=== PATIENT | female | born 1935 | race Caucasian/White ===

== ENCOUNTER → 2016-09-01 | Outpatient (CLI) | payer MEDICARE, BC ==
[~2016-09-01] MED LIST: COREG 6.256.25 MG/TA PO; ENTOCORT EC3 MG PO; LAMICTAL 100MG100 MG PO; LIPITOR 10MG10 MG PO; NORVASC 10MG10 MG PO; PLAVIX 75MG TAB75 MG PO; SYNTHROID0.075 MG/T PO; ZESTORETIC 12.51 TAB PO
== END ==
LOC: COL.RAD 09:51
DX: K52.9 Noninfective gastroenteritis and colitis, unspecified (principal); I70.1 Atherosclerosis of renal artery; I70.208 Unspecified atherosclerosis of native arteries of extremities, other extremity
CPT/HCPCS: Q9967

== ENCOUNTER 2016-10-07 05:38 | Day surgery (SDC) | payer MEDICARE, BC ==
[2016-10-07] VITALS (22 sets, daily range): BP systolic 127–174; BP diastolic 58–85; PULSE 17–74; TEMP 97.7
[~2016-10-07] VITALS: Ht 157.6 cm; Wt 49.5 kg
[2016-10-07 06:32] LABS: HEMOGLOBIN 12.3 g/dl (12.5-16.0); MEAN CELL VOLUME 89 fl (80.0-100.0); MEAN CORPUSCULAR HEMOGLOBIN 31 pg (27.0-31.0); MEAN CORPUSCULAR HGB CONC 34 g/dl (33.0-37.0); MEAN PLATELET VOLUME 9.7 fl (7.4-10.4); PLATELET COUNT 229 K/mm3 (130-400); RED BLOOD COUNT 4.03 M/mm3 (4.10-5.30); REDCELL DISTRIBUTION WIDTH-CV 12.8 % (11.5-14.5); WHITE BLOOD COUNT 8.2 K/mm3 (4.8-10.8)
[2016-10-07 06:37] LABS: INR 0.9 (0.8-3.0); PROTHROMBIN TIME 10.2 SECONDS (9.7-12.8)
[2016-10-07] MEDS ORDERED: LAMICTAL 100MG100 MG PO (06:37)
[2016-10-07] MEDS ORDERED: NORVASC 10MG10 MG PO (06:37)
[2016-10-07] MEDS ORDERED: ZESTORETIC 12.51 TAB PO (06:39)
[2016-10-07] MEDS ORDERED: SYNTHROID0.075 MG/T PO (06:39)
[2016-10-07] MEDS ORDERED: COREG 6.256.25 MG/TA PO (06:40)
[2016-10-07] MEDS ORDERED: LIPITOR 10MG10 MG PO (06:41)
[2016-10-07] MEDS ORDERED: ENTOCORT EC3 MG PO (06:42)
[2016-10-07 06:43] LABS: CREATININE, serum 1.1 mg/dL (0.52-1.25)
[2016-10-07] MEDS ORDERED: PLAVIX 75MG TAB75 MG PO (16:57)
== END 2016-10-07 22:00 | disposition home or self-care (01) ==
LOC: COL.CAR 05:38
PROVIDERS: Radiology Diagnostic Radiology
DX: I70.8 Atherosclerosis of other arteries (principal); I70.1 Atherosclerosis of renal artery; I10 Essential (primary) hypertension; J44.9 Chronic obstructive pulmonary disease, unspecified; K21.9 Gastro-esophageal reflux disease without esophagitis; E03.9 Hypothyroidism, unspecified; M19.90 Unspecified osteoarthritis, unspecified site; D64.9 Anemia, unspecified; E78.00 Pure hypercholesterolemia, unspecified; F17.210 Nicotine dependence, cigarettes, uncomplicated
CPT/HCPCS: A4315; C1724; C1725; C1769; C1874; C1887; J1644; J2250; J3010; J7120; Q9967

== ENCOUNTER → 2017-09-20 | Outpatient (CLI) | payer MEDICARE, BC | LOC: COL.VAS 11:56 | DX: R22.42 Localized swelling, mass and lump, left lower limb (principal); Z98.890 Other specified postprocedural states; Z95.820 Peripheral vascular angioplasty status with implants and grafts; Z72.0 Tobacco use ==

== ENCOUNTER 2018-07-21 15:41 | Inpatient (IN) | payer MEDICARE, BC ==
[~2018-07-21] VITALS: Ht 157.5 cm; Wt 47.3 kg
--- NOTE | 2018-07-21 15:45 | NUR ---
arrived on unit per stretcher to room 345, alert and oriented, assisted into bed, martinez cath patent draining clear yllow urine, only c/os pain with movement and then states pain is manageable,
[2018-07-21 16:13] VITALS: BP 152/66; PULSE 53; TEMP 97.3
--- NOTE | 2018-07-21 16:15 | NUR ---
resting in bed, JUNITO hose on right leg and SCDs on bilaterally,
--- NOTE | 2018-07-21 16:45 | NUR ---
Priya CONNER in to see patient
--- NOTE | 2018-07-21 16:52 | NUR ---
RYLAND Dunn paged regarding consult
[2018-07-21 16:55] LABS: PROTHROMBIN TIME 10.9 SECONDS (9.7-12.8)
[2018-07-21] MEDS ORDERED: K-TAB10 PO (17:08)
[2018-07-21] MEDS ORDERED: PROAIR HFA0.09 MG/AC IH (17:08)
--- NOTE | 2018-07-21 17:30 | NUR ---
telemetry place and transmission confirmed, Dr Schmidt in to see patient
--- NOTE | 2018-07-21 17:38 | NUR ---
RYLAND Dunn in to see patient
[2018-07-21 17:44] LABS: COLLECTION METHOD CATHETER
[2018-07-21 17:52] LABS: PH 7 (5-8); SQUAMOUS EPITHELIAL 0-2 /hpf; URINE APPEARANCE Clear; URINE BACTERIA Rare /hpf; URINE BILIRUBIN Negative (NEGATIVE); URINE BLOOD 1+ (NEGATIVE); URINE COLOR Straw; URINE GLUCOSE Negative (NEGATIVE); URINE KETONE Negative (NEGATIVE); URINE LEUKOCYTE ESTERASE Negative (NEGATIVE); URINE NITRATE Negative (NEGATIVE); URINE PROTEIN(semi-quant) Negative (NEGATIVE); URINE UROBILINOGEN Negative (NEGATIVE)
--- NOTE | 2018-07-21 18:19 | NUR ---
resting in bed now, assisted her with ordering her supper, denies other needs
--- NOTE | 2018-07-21 19:05 | NUR ---
sitting up in bed eating supper, bedside shift report given to VAUGHN Bruce
[2018-07-21 19:17] VITALS: BP 141/68; PULSE 56; TEMP 96.6
[2018-07-21 19:23] VITALS: BP 132/71; PULSE 86; TEMP 96.8
--- NOTE | 2018-07-21 21:30 | NUR ---
PT IN BED WITH HOB AT 45 DEGREE ANGLE. PT IS UNCOMFORTABLE SITTING IN ONE SPOT. PT TRIED TO GET OUT OF BED, ADVISED HER TO KEEP LEGS STRAIGHT IN BED AND TRY NOT TO MOVE LEFT LEG SO MUCH. PT RATES PAIN AT A 1/10 AND IS JUST UNCOMFORTABLE AND WANTS SOMETHING FOR PAIN. TYLENOL GIVEN. NO FURTHER NEEDS CALL LIGHT WITHIN REACH.
[2018-07-22] VITALS (14 sets, daily range): BP systolic 112–153; BP diastolic 59–78; PULSE 51–64; TEMP 97.4–98.2
--- NOTE | 2018-07-22 02:19 | NUR ---
PT STILL AWAKE AND HAVING TROUBLE SLEEPING. PT DENIES PAIN TO LEFT HIP, BUT SHE IS FEELING UNCOMFORTABLE FROM SITTING IN SAME POSITION. PT WAS OFFERED TO PUT ICE TO LEFT HIP, BUT PT DECLINED. PT HAS SCDs ON. PT'S JANE IS DRAINING CLEAR YELLOW URINE. PT GIVEN TYLENOL FOR PAIN AT ABOUT 1 OR 2 IN OTHER LEG AND LOWER BACK. CALL LIGHT WITHIN REACH.
--- NOTE | 2018-07-22 05:22 | NUR ---
PT HAS C/O LLE SPASMS, ALSO C/O OF RLE HURTING AND SHE IS AWARE IT IS NOT THE LLE WITH THE BROKEN HIP. PT HAS BEEN GIVEN TYLENOL FOR PAIN. PT REFUSES TO USE AN ICE PACK FOR LEFT HIP AREA OR TO TAKE DILUADID FOR PAIN. PAIN IS AWARE THAT SHE IS NPO AND CANNOT EAT OR DRINK. DID GIVE HER MOUTH MOISTURIZER TO USE FOR HER LIPS AND HELP WITH DRY MOUTH. PT HAS NOT FALLEN ASLEEP THIS SHIFT. CALL LIGHT WITHIN REACH.
[2018-07-22 06:33] LABS: BASO % 0.5 % (0.0-2.0); EOS # 0.2 (0.0-0.7); EOS % 3.4 % (0-4.0); GRAN # 4.9 (1.4-6.5); GRAN % 74.9 % (42.2-75.2); HEMATOCRIT 33.8 % (37.0-47.0); HEMOGLOBIN 11.6 g/dl (12.5-16.0); LYMPH # 0.8 (1.2-3.4); LYMPH % 12.2 % (20.0-51.0); MEAN CELL VOLUME 89 fl (80.0-100.0); MEAN CORPUSCULAR HEMOGLOBIN 31 pg (27.0-31.0); MEAN CORPUSCULAR HGB CONC 34 g/dl (33.0-37.0); MEAN PLATELET VOLUME 10.3 fl (7.4-10.4); MONO # 0.6 (0.1-0.6); MONO % 8.7 % (1.7-9.3); PLATELET COUNT 191 K/mm3 (130-400); RED BLOOD COUNT 3.78 M/mm3 (4.10-5.30); REDCELL DISTRIBUTION WIDTH-CV 12.9 % (11.5-14.5)
[2018-07-22 06:47] LABS: CALCIUM 9.2 mg/dL (8.4-10.2); CREATININE, serum 1.03 mg/dL (0.52-1.25); POTASSIUM 3.4 mmol/L (3.4-5.0)
--- NOTE | 2018-07-22 07:14 | NUR ---
PT HAD INCREASED PAIN AT END OF SHIFT. PT FEELS THAT IT IS LAYING IN BED ALL NIGHT. CARE TAKEN OVER BY DILLAN MENDES AND DILLAN MENDES ADVISED THAT SHE IS GOING TO GET HER DILAUDID FOR PAIN. PT REFUSED DILAUDID WHEN OFFERED THROUGHOUT THE NIGHT AND ALSO REFUSED THE ICE BAG. CALL LIGHT WITHIN REACH.
--- NOTE | 2018-07-22 07:20 | NUR ---
resting in bed but tearful and c/o pain to hip, medicated with dilaudid 0.5mg slow IV, full assessment completed, see interventions for further info,
--- NOTE | 2018-07-22 07:45 | NUR ---
SOFIA called nurse to the room stating the patient was feeling sick to her stomach, when entered room she said she was beginning to feel a little better, medicated with zofran 4mg slow IV
--- NOTE | 2018-07-22 08:45 | NUR ---
resting in bed visiting with darryn
--- NOTE | 2018-07-22 10:15 | NUR ---
Initial visit; Patient thanked Skein Yarn Dyer for looking in on her and letting her know of the availability of [facility] at [facility].
--- NOTE | 2018-07-22 10:20 | NUR ---
CHIEF HYDROELECTRIC STATION OPERATOR in and assisting her with am hygiene
--- NOTE | 2018-07-22 11:00 | NUR ---
appears to be sleeping, in bed with lights off, eyes closed, resp quiet and easy
--- NOTE | 2018-07-22 11:45 | NUR ---
awake now and given moist swabs for her dry mouth, Priya CONNER in to see patient,
--- NOTE | 2018-07-22 12:40 | NUR ---
to surgery per bed
--- NOTE | 2018-07-22 15:05 | NUR ---
GEORGINA mayo attempted to complete intake. Patient's (Silvano) was in the room waiting for the patient to return from surgery. The patient lives in [place] with her . The confirmed that the patient's PCP is Dr. Lamb and she receives her medications from [facility] in [place]. The patient has an old cane and a pair of crutches at home. The reports that the patient was independent with ADLs prior to hospitalization. The believes that the patient has completed a DPOA-HC in the past. GEORGINA mayo only found a Living Will in EMR. GEORGINA mayo discussed post-acute rehab with the patient's . The would like to wait for the patient to discuss options. GEORGINA to continue to follow.
--- NOTE | 2018-07-22 15:20 | NUR ---
returned to room per bed from PACU, awake and alert, IV infusing and placed on pump at 60ml/hr, O2 on at 2L/NC and O2 sat 94%, JUNITO hose and SCDs on bilaterally, has sensation to feet bilaterally and able to wiggle toes bilaterally, gauze dressing to left hip CD&I and ice in place, takes sips of water and tolerates well, has loose productive cough now and it is thin and clear white sputum, encouraged to C&DB and does this well, at bedside
--- NOTE | 2018-07-22 15:45 | NUR ---
resting between checks, is ready to try some applesauce and this was provided, if tolerates will instruct on ordering regular food
--- NOTE | 2018-07-22 16:00 | NUR ---
had applesauce and tolerated well, will review menu and will assist her with ordering
--- NOTE | 2018-07-22 16:30 | NUR ---
assisted her with ordering something to eat, O2 sat 98% on 3L/NC and O2 down to 2L
--- NOTE | 2018-07-22 17:01 | NUR ---
sitting up in bed eating supper, O2 sat89% on room air, she has taken off the O2 to eat, will reapply when finished eating, remains at bedside
--- NOTE | 2018-07-22 17:49 | NUR ---
PLATE FILLER came to desk and stated pateint's IV looked to be swollen, has some redness at site and swelling, IV fluids stopped and discontinued, warm pack placed
--- NOTE | 2018-07-22 18:00 | NUR ---
visiting with and daughter, IV restartedin left forearm
--- NOTE | 2018-07-22 18:53 | NUR ---
bedside shift report given to VAUGHN Bruce
--- NOTE | 2018-07-22 21:30 | NUR ---
PT IN BED WITH HOB ELEVATED TO 45 DEGREE ANGLE, O2 ON AT 2L/NC. PT HAS C/O PAIN THAT IS ABOUT 5/10, GAVE DILAUDID FOR PAIN AT PT'S REQUEST. PT HAS INCISION ON LEFT HIP AREA THAT HAS GAUZE DRSG OVER IT. DRSG IS C/D/I, NO SWELLING AT THE SITE. PT HAS ICE PACK ON LEFT HIP AREA. PT HAS NO FURTHER NEEDS CALL LIGHT WITHIN REACH AND BED ALARM IS ON.
[2018-07-23] VITALS (8 sets, daily range): BP systolic 121–162; BP diastolic 59–79; PULSE 57–112; TEMP 97.6–98.2
--- NOTE | 2018-07-23 01:53 | NUR ---
PT SLEEPING/RESTING WITH NO S/S OF PAIN OR DISCOMFORT, RESP EVEN AND UNLABORED AND CALL LIGHT WITHIN REACH.
--- NOTE | 2018-07-23 03:47 | NUR ---
PT DID ADVISE THAT SHE DID GET SOME SLEEP THIS NIGHT. PT ADVISED THAT HER LEFT LEG WAS HURTING HER, BUT SHE DECLINED ANY PAIN MEDICATION AND ADVISED THAT SHE WANTED TO WAIT AND SHE WILL LET ME KNOW WHEN SHE WANTS PAIN MEDICATION AGAIN. PT IS AWAKE IN BED WITH HOB ELEVATED TO 45 DEGREE ANGLE, ICE STILL ON LEFT HIP AREA, AND PEDAL PULSES ARE A +2, DRSG INTACT AND CLEAN, DRY, AND INTACT. CALL LIGHT WITHIN REACH AND BED ALARM ON.
[2018-07-23 07:31] LABS: BASO % 0.5 % (0.0-2.0); EOS # 0.4 (0.0-0.7); EOS % 6.3 % (0-4.0); GRAN # 4.4 (1.4-6.5); HEMOGLOBIN 10.9 g/dl (12.5-16.0); LYMPH # 0.6 (1.2-3.4); LYMPH % 10.7 % (20.0-51.0); MEAN CELL VOLUME 90 fl (80.0-100.0); MEAN CORPUSCULAR HEMOGLOBIN 30 pg (27.0-31.0); MEAN CORPUSCULAR HGB CONC 34 g/dl (33.0-37.0); MEAN PLATELET VOLUME 10.4 fl (7.4-10.4); MONO # 0.5 (0.1-0.6); MONO % 8.2 % (1.7-9.3); PLATELET COUNT 156 K/mm3 (130-400); REDCELL DISTRIBUTION WIDTH-CV 12.8 % (11.5-14.5)
[2018-07-23 07:38] LABS: CALCIUM 8.7 mg/dL (8.4-10.2); CREATININE, serum 0.98 mg/dL (0.52-1.25); POTASSIUM 3.7 mmol/L (3.4-5.0)
[2018-07-23 07:47] LABS: HEMATOCRIT 32.5 % (37.0-47.0)
--- NOTE | 2018-07-23 10:11 | NUR ---
SW met with patient about post acute rehab choices. Patient chose 1. [facility] and 2. [facility]. SW contacted and faxed referrals to both.
--- NOTE | 2018-07-23 18:00 | NUR ---
Medicated with [place] in AM for c/o left hip pain with movement. Transferred to recliner chair with physical therapy. Complained of intermittent nausea, but denied need for med. Ambulated with walker and staff x 2 in halls short distance.
--- NOTE | 2018-07-23 20:30 | NUR ---
Pt. sitting up in bed at this time. Pt. is A&OX3, assessement complete. INT to lt. forearm patent. Dressing to lt. hip cdi. Pt. denies pain or other needs at this time, call light within reach.
[2018-07-24 03:20] VITALS: BP 160/81; PULSE 61; TEMP 98.2
[2018-07-24 07:00] LABS: BASO % 0.3 % (0.0-2.0); EOS # 0.4 (0.0-0.7); EOS % 5.9 % (0-4.0); GRAN # 4.7 (1.4-6.5); GRAN % 72.7 % (42.2-75.2); HEMOGLOBIN 10.8 g/dl (12.5-16.0); LYMPH # 0.7 (1.2-3.4); LYMPH % 11.5 % (20.0-51.0); MEAN CELL VOLUME 89 fl (80.0-100.0); MEAN CORPUSCULAR HEMOGLOBIN 31 pg (27.0-31.0); MEAN CORPUSCULAR HGB CONC 35 g/dl (33.0-37.0); MEAN PLATELET VOLUME 10.5 fl (7.4-10.4); MONO # 0.6 (0.1-0.6); PLATELET COUNT 166 K/mm3 (130-400); RED BLOOD COUNT 3.51 M/mm3 (4.10-5.30); REDCELL DISTRIBUTION WIDTH-CV 12.7 % (11.5-14.5)
[2018-07-24 07:08] LABS: HEMATOCRIT 31.2 % (37.0-47.0)
[2018-07-24 07:13] LABS: CALCIUM 9.3 mg/dL (8.4-10.2); CREATININE, serum 1.12 mg/dL (0.52-1.25); POTASSIUM 3.6 mmol/L (3.4-5.0)
[2018-07-24 07:29] VITALS: BP 149/74; PULSE 73; TEMP 97.9
[2018-07-24 13:08] VITALS: BP 121/66; PULSE 65; TEMP 98.1
[2018-07-24 15:17] VITALS: BP 135/65; PULSE 64; TEMP 98
--- NOTE | 2018-07-24 18:30 | NUR ---
Ambulated short distance in halls with walker and one staff assist several times today. Minimal complaints of pain. Pride given x one this shift. Sitting up in recliner chair.
[2018-07-24 20:26] VITALS: BP 149/63; PULSE 79; TEMP 98.4
--- NOTE | 2018-07-24 23:31 | NUR ---
PT IN BED. NO c/o N/V. 1 NORCO FOR PAIN. PT WALKED APPROX. 100 FEET IN [place]. PT VOIDING.
[2018-07-25 00:18] VITALS: BP 146/79; PULSE 80; TEMP 97.9
[2018-07-25 04:10] VITALS: BP 149/68; PULSE 68; TEMP 97.8
--- NOTE | 2018-07-25 05:27 | NUR ---
RESTING QUIETLY. NO N/V. NORCO FOR PAIN AT BEGINNING OF SHIFT, DENIED NEED FOR PAIN MEDS SINCE THEN. NEW ICE APPLIED.
[2018-07-25] MEDS ORDERED: ASPI325T6 PO (09:07)
[2018-07-25] MEDS ORDERED: TYLENOL 325MG325 MG PO (09:08)
[2018-07-25] MEDS ORDERED: OSCAL 500 TAB500 MG PO (09:08)
[2018-07-25] MEDS ORDERED: DULCOLAX S10 MG/SUPP RC (09:09)
[2018-07-25] MEDS ORDERED: SENOKOT S 50 MG1 TAB PO (09:09)
[2018-07-25] MEDS ORDERED: MULTI VITAMINS1 TAB PO (09:09)
[2018-07-25] MEDS ORDERED: VITAMIN C500 MG PO (09:09)
[2018-07-25] MEDS ORDERED: GOOD NEIGH1200 MG/15 PO (09:09)
[2018-07-25] MEDS ORDERED: NORCO 325 MG-51 TAB PO (09:09)
[2018-07-25 09:47] VITALS: BP 110/63; PULSE 63; TEMP 97.2
[2018-07-25] MEDS ORDERED: ZESTRIL 10MG10 MG PO (10:31)
--- NOTE | 2018-07-25 11:25 | NUR ---
GEORGINA met with patient to discuss transfer to [facility] today. She reports she will call her but is worried about getting into his truck. SW informed her that we will help her get into the truck and [facility] will help her out. GEORGINA presented IM to patient and verbally discussed the contents. Patient was agreeable and signed the form. COpy denied and original in the chart. Doc to Doc number provided to Dr Schmidt and discharge orders faxed.
[2018-07-25 13:25] VITALS: BP 118/58; PULSE 58; TEMP 97.3
--- NOTE | 2018-07-25 14:35 | NUR ---
PATIENT TRANSFERING VIA WHEELCHAIR TO PERSONAL [facility]HICLE WITH TO [facility]. GAVE DISCHARGE INFO PACKET TO . CALLED REPORT TO NURSE IN [place]. IV DC'D. PERSONAL BELONGINGS SENT WITH .
== END 2018-07-25 14:35 | disposition swing bed (61) | DRG 481 ==
LOC: SURG 15:41
PROVIDERS: Nurse Practitioner Family; Orthopaedic Surgery; ADMIT Hospitalist
PROC: 0QH734Z Insertion of Internal Fixation Device into Left Upper Femur, Percutaneous Approach (ICD-10-PCS; principal; 2018-07-22 13:00)
DX: S72.002A Fracture of unspecified part of neck of left femur, initial encounter for closed fracture (principal); E87.1 Hypo-osmolality and hyponatremia; G40.89 Other seizures; W18.30XA Fall on same level, unspecified, initial encounter; I10 Essential (primary) hypertension; J44.9 Chronic obstructive pulmonary disease, unspecified; E78.5 Hyperlipidemia, unspecified; E03.9 Hypothyroidism, unspecified; I73.9 Peripheral vascular disease, unspecified; Z95.820 Peripheral vascular angioplasty status with implants and grafts; K52.9 Noninfective gastroenteritis and colitis, unspecified; Z87.891 Personal history of nicotine dependence; R11.0 Nausea; R42 Dizziness and giddiness; T40.2X5A Adverse effect of other opioids, initial encounter
CPT/HCPCS: 99222-AI; 99231-AI; 99232-AI; 99239; A9284; C1713; J1170; J2250; J2405; J2704

== ENCOUNTER 2020-09-24 20:24 | Emergency (ER) | payer MEDICARE, BC ==
[~2020-09-24] VITALS: Ht 157.5 cm; Wt 43.6 kg
[~2020-09-24 20:24] MED LIST changes: +ASPI325T6 PO; +DULCOLAX S10 MG/SUPP RC; +GOOD NEIGH1200 MG/15 PO; +K-TAB10 PO; +MULTI VITAMINS1 TAB PO; +NORCO 325 MG-51 TAB PO; +OSCAL 500 TAB500 MG PO; +PROAIR HFA0.09 MG/AC IH; +SENOKOT S 50 MG1 TAB PO; +TYLENOL 325MG325 MG PO; +VITAMIN C500 MG PO; +ZESTRIL 10MG10 MG PO
[2020-09-24 20:25] VITALS: TEMP 98.1
[2020-09-24 23:18] VITALS: BP 165/79; PULSE 61
== END 2020-09-24 21:13 | disposition home or self-care (01) ==
LOC: COL.ER 20:24
DX: S51.812A Laceration without foreign body of left forearm, initial encounter (principal); S70.02XA Contusion of left hip, initial encounter; S60.212A Contusion of left wrist, initial encounter; J44.9 Chronic obstructive pulmonary disease, unspecified; I10 Essential (primary) hypertension; E78.5 Hyperlipidemia, unspecified; E07.9 Disorder of thyroid, unspecified; F17.210 Nicotine dependence, cigarettes, uncomplicated; Z79.52 Long term (current) use of systemic steroids; Z88.0 Allergy status to penicillin; Z88.2 Allergy status to sulfonamides; Z79.899 Other long term (current) drug therapy; Z88.6 Allergy status to analgesic agent; Z88.1 Allergy status to other antibiotic agents; W19.XXXA Unspecified fall, initial encounter; Y92.009 Unspecified place in unspecified non-institutional (private) residence as the place of occurrence of the external cause
CPT/HCPCS: J1885; J3010